=== PATIENT | female | born 1970 | race Caucasian/White ===

== ENCOUNTER 2021-12-19 13:50 | Emergency (ER) | payer BC, SELFPAY ==
--- NOTE | ~2021-12-19 | XR_ITS ---
EXAMINATION: XR knee RT min 4V DATE: 12/19/2021 14:44 INDICATION: Right knee pain TECHNIQUE: Four views of the right knee were obtained. COMPARISON: None. FINDINGS: Alignment is normal. No fracture or osteochondral lesion. There is tricompartmental osteoar thritis, moderate in the patellofemoral compartment. No joint effusion/synovitis. Soft tissues are u nremarkable. IMPRESSION: 1. No acute osseous abnormality. Reviewed, dictated and finalized at location F.
[2021-12-19 13:57] VITALS: BP 147/91; PULSE 91; RESP 18; TEMP 36.7; O2SAT 100
--- NOTE | 2021-12-19 14:33 | ED.LOWEXIN ---
HPI - Extremity Injury (Lower) General Chief Complaint: Extremity Injury, Lower Stated Complaint: knee pain with inability to bear weight Time Seen by Provider: 12/19/21 14:03 Source: patient History of Present Illness HPI Narrative: 51-year-old female presented to the emergency department for evaluation of right lower leg pain. Patient states she was attempting to turn when she felt a pop in her right lateral knee. Patient since then she has had increased pain with movement and inability to bear weight. Related Data Allergies Allergy/AdvReac Type Severity Reaction Status Date / Time NIA Inhibitors Allergy Unknown Unknown Verified 12/01/21 07:55 Review of Systems Review of Systems: CONSTITUTIONAL: Denies fever, chills, or sweats. EYES: Denies visual changes, redness, or discharge. ENT: Denies rhinorrhea, congestion, sore throat, or otalgia. CARDIOVASCULAR: Denies chest pain, palpitations, or edema. RESPIRATORY: Denies cough or dyspnea. GASTROINTESTINAL: Denies abdominal pain, nausea, vomiting, or diarrhea. GENITOURINARY: Denies dysuria or hematuria. SKIN: Denies rash or itching. MUSCULOSKELETAL: See HPI NEUROLOGIC: Denies headache, numbness, or weakness. PMFSH Past Medical History Medical History BMI 37.0-37.9, adult BMI 38.0-38.9,adult BMI greater than 40 Cholecystectomy planned Colon cancer screening Family History Family History Father Acute myocardial infarction Mother Osteoporosis Hypertension Sibling No problems noted. Social History Social History Second hand tobacco smoke exposure: No Alcohol intake: current Substance use: never Substance use type: does not use Additional occupation/education comments: practice m[employer] Gender identity (if verbalized by the patient): Female Exam Narrative: APPEARANCE: Well appearing, no pain, no distress, well-nourished. HEAD: normocephalic, atraumatic. ABDOMINAL: Soft, nontender, nondistended, normal bowel sounds MUSCULOSKELETAL: Moves all extremities. Right lateral knee tenderness to palpation. No crepitus, no deformity. NEURO: Alert. Cranial nerves II through XII intact. Grossly intact SKIN: Warm, dry. Normal Color Course Vital Signs Vital signs: Vital Signs Temperature 98.1 F 12/19/21 13:57 Pulse Rate 91 12/19/21 13:57 Respiratory Rate 18 12/19/21 13:57 Blood Pressure 147/91 H 12/19/21 13:57 Pulse Oximetry 100 12/19/21 13:57 Temperature 98.1 F 12/19/21 13:57 Pulse Rate 91 12/19/21 13:57 Respiratory Rate 18 12/19/21 13:57 Blood Pressure 147/91 H 12/19/21 13:57 Pulse Oximetry 100 12/19/21 13:57 MDM - Extremity Injury (Lower) Imaging Data Radiologist's impression: Impressions Knee X-Ray 12/19/21 14:49 IMPRESSION: 1. No acute osseous abnormality. Discharge Plan Discharge Clinical Impression: Acute pain of right knee Patient Disposition: Home, Self-Care Condition: Stable Instructions: Antibiotic Form, Crutch Instructions (ED), Knee Pain (ED), Knee Immobilizer (ED) Additional Instructions: Tylenol and ibuprofen for pain control. Knee immobilizer as directed. Crutches for limited weightbearing. Have close follow-up with your primary care physician and with orthopedics. If you have any worsening symptoms or if you have any questions or concerns and please call or return to the emergency department. Prescriptions: No Action hydrochlorothiazide 12.5 mg capsule 12.5 mg PO DAILY Qty: 90 RF: 3 norgestimate-ethinyl estradiol [Ortho Tri-Cyclen (28)] 0.18/0.215/0.25 mg-35 mcg (28) tablet 1 tablet PO DAILY Qty: 84 RF: 0 olmesartan-hydrochlorothiazide 20-12.5 mg tablet See Rx Instructions .ROUTE .COMPLEX Qty: 90 RF: 0 Follow-up/Referrals: Rodrigo
--- NOTE | 2021-12-19 15:25 | PC.NURSE ---
pt refused crutches
== END 2021-12-19 15:26 | disposition home or self-care (01) ==
PROVIDERS: Emergency Provider Emergency Medicine; PCP Family Medicine
DX: M25.561 Pain in right knee (principal)
CPT/HCPCS: 73564; 99283

== ENCOUNTER → 2021-12-21 11:10 | Outpatient (CLI) | payer BC, SELFPAY ==
--- NOTE | ~2021-12-21 | US_ITS ---
EXAMINATION: US thyroid DATE: 12/21/2021 11:37 INDICATION: Nontoxic goiter, unspecified. Renan thyroiditis. TECHNIQUE: Multiple ultrasound images of the thyroid were obtained. COMPARISON: None. FINDINGS: The right thyroid lobe measures 5.1 x 2.2 x 2.0 cm. The left thyroid lobe measures 4.6 x 1.7 x 1.2 c m. The thyroid is diffusely heterogeneous and hypoechoic. Vascularity is normal. In the right thyroi d lobe, there is a 7 mm solid, hypoechoic, [id number] nodule with smooth margin without echogeni c foci (TI-RADS TR4). In the left thyroid lobe, there is an 8 mm solid, hypoechoic, [id number]-[id number] n odule with ill-defined margin without echogenic foci (TR4). IMPRESSION: 1. Heterogeneous thyroid, likely chronic lymphocytic (Renan) thyroiditis. 2. Small thyroid nodules, likely not clinically significant. No follow-up is needed. Reviewed, dictated and finalized at location A. IMPRESSION: 1. Heterogeneous thyroid, likely chronic lymphocytic (Renan) thyroiditis. 2. Small thyroid nodules, likely not clinically significant. No follow-up is ne eded.
--- NOTE | ~2021-12-21 | MR_ITS ---
EXAMINATION: MR knee RT wo con DATE: 12/21/2021 18:46 INDICATION: Right knee injury with lateral right knee pain TECHNIQUE: Magnetic resonance imaging (MRI) of the right knee was performed without intravenous contr ast. Sequences included coronal PD-weighted FSE, coronal PD-weighted FS FSE, sagittal T2-weighted FS E, sagittal PD-weighted FS FSE and axial PD weighted fat saturated FSE. COMPARISON: None. FINDINGS: Medial compartment: Full-thickness radial tear near the posterior root of the medial meniscus. Deep chondral ulceration w ithout degenerative subchondral changes at the anteriormost aspect of the weightbearing medial femora l condyle. Shallow chondral surface irregularity along the central weightbearing medial femoral condy le. Lateral compartment: Lateral meniscus is normal. Chondral fissuring involving up to 50% the cartilage thickness at the pos terior aspect of the lateral tibial plateau. Patellofemoral compartment: Extensive full and near full-thickness cartilage ulceration with underlying cortical irregularity and mild edema-like subarticular marrow signal changes involving much of the lateral trochlea and latera l patellar facet. Additional partial thickness chondral ulceration involving approximately 50% the ca rtilage thickness at the central aspect of the trochlear groove. Deep chondral fissuring with additio nal mild cortical irregularity at the inferior aspect of the medial trochlea. Ligaments and tendons: Anterior and posterior cruciate ligaments are normal. The fibular collateral ligament complex is norm al. There is mild thickening of the proximal medial collateral ligament without abnormal signal ku es consistent with mild scarring related to chronic sprain. Mild distal quadriceps tendinopathy with small enthesophytes at its patellar insertion. The patellar tendon is normal. The visualized medial a nd lateral hamstring tendons as well as the iliotibial band are normal. Fluid: Small right knee joint effusion. No loose osteochondral bodies identified. Osseous/other: 6 mm lateral patellar subluxation and slight lateral patellar tilt. No fracture or pathologic marrow replacing process. Subcutaneous varicosities along both the medial and lateral aspects of the knee. IMPRESSION: 1. Full-thickness radial tear near the posterior root of the medial meniscus. 2. Tricompartmental osteoarthritis, severe with extensive high-grade chondral malacia the lateral asp ect of the patellofemoral compartment and mild with small regions of moderate grade chondromalacia in the medial and lateral compartments. Reviewed, dictated and finalized at location B. IMPRESSION: 1. Full-thickness radial tear near the posterior root of the medial meniscus. 2. Tricompartmental osteoarthritis, severe with extensive high-grade chondral m alacia the lateral aspect of the patellofemoral compartment and mild with small regions of moderate grade chondromalacia in the medial and lateral compartment s.
== END ==
PROVIDERS: PCP Family Medicine; Visit Provider Nurse Practitioner Family
DX: S83.241A Other tear of medial meniscus, current injury, right knee, initial encounter (principal); M25.461 Effusion, right knee; M17.11 Unilateral primary osteoarthritis, right knee; E04.9 Nontoxic goiter, unspecified
CPT/HCPCS: 73721; 76536

== ENCOUNTER → 2022-03-21 12:33 | Outpatient (CLI) | payer BC, SELFPAY ==
--- NOTE | ~2022-03-21 | DEXA_ITS ---
Bone Density Report Name: FELIZ AVALOS Age: 52 Sex: Female Ethnicity: White Date of : 1970 Indication: screening for osteoporosis; Referring Provider: Mark Connell Study: Bone densitometry was performed. Exam Date: March 21, 2022 Accession number: [id number] Bone Density: Region BMD T-score Z-score Classification AP Spine (L1-L4) 1.037 -0.1 0.7 Normal Femoral Neck (Left) 1.022 1.6 2.4 Normal Total Hip (Left) 1.092 1.2 1.7 Normal Femoral Neck (Right) 1.010 1.5 2.3 Normal Total Hip (Right) 1.039 0.8 1.3 Normal Total Hip Mean 1.066 1.0 1.5 Normal World Health Organization criteria for BMD impression classify patients as: Normal (T-score at or above -1.0), Osteopenia (T-score between -1.0 and -2.5), or Osteoporosis (T-score at or below -2.5). 10-year Fracture Risk: FRAX not reported because: All T-scores for Spine Total, Hip Total, Femoral Neck at or above -1.0 Clinical Information Provided by Patient: Has used the following medications: Vitamin D, MULTI VITAMIN Patient maximum height was 69 No regular weight bearing exercise Drinks caffeinated beverages Onset of menses at age 18 Premenopausal Number of children 0 Impression: The patient's bone mass is within expected range for age, gender and ethnicity. Discussion: BONE DENSITY IS WITHIN EXPECTED LIMITS FOR AGE, SEX AND RACE. Bone density is within expected limits for age, sex and race at all sites measured. The patient should follow a healthful lifestyle (good nutrition with adequate calcium and vitamin D, and appropriate weight-bearing exercise). Follow-Up: Consider repeating this study in 5 years or sooner if there is some new clinical indication. Reported by: CRISTEL on 03/21/2022 1:13:00 PM. Reviewed, dictated and finalized at location A. [facility]
--- NOTE | ~2022-03-21 | MM_ITS ---
EXAMINATION: MM screening mimi BI w concha HISTORY: Screening mammogram TECHNIQUE: Craniocaudal and mediolateral oblique 3-D tomosynthesis images were obtained and synthetic 2-D images were generated. CAD analysis was submitted and interpreted. COMPARISON: No prior mammogram is available for comparison at this institution. BREAST PARENCHYMAL COMPOSITION: The breasts are almost entirely fatty. FINDINGS: There is no evidence of suspicious mass, calcification, or architectural distortion to sugg est malignancy in either breast. There has been no suspicious interval change. IMPRESSION: 1. No mammographic evidence of malignancy. 2. Recommend routine screening mammography in one year. BI-RADS Category 1: Negative Reviewed, dictated and finalized at location A.
== END ==
PROVIDERS: PCP Family Medicine; Visit Provider Nurse Practitioner Family
DX: Z12.31 Encounter for screening mammogram for malignant neoplasm of breast (principal); Z82.62 Family history of osteoporosis; Z78.0 Asymptomatic menopausal state
CPT/HCPCS: 77063; 77067; 77080